=== PATIENT | male | born 1950 | race Native Hawaiian/Other Pacific Islander ===

== ENCOUNTER 2019-11-05 19:53 | Emergency (ER) | payer OTHER ==
[~2019-11-05] VITALS: Ht 175.3 cm; Wt 95.7 kg
[2019-11-05 19:53] VITALS: BP 137/77; TEMP 97.7
[2019-11-05 20:29] LABS: PLATELET COUNT 273 K/uL (142-355)
[2019-11-05 20:44] LABS: POTASSIUM 4.6 mmol/L (3.6-5.2)
[2019-11-06] MEDS ORDERED: DONE5TAB PO (01:20)
[2019-11-06] MEDS ORDERED: AMLODIPINE BESYLATE PO (01:20)
[2019-11-06] MEDS ORDERED: LIPITOR40 MG PO (01:21)
[2019-11-06] MEDS ORDERED: ASPIRIN 81 LOW81 MG PO (01:21)
[2019-11-06] MEDS ORDERED: BREO ELLIPTA 101 INH INH (01:22)
[2019-11-06] MEDS ORDERED: EQ ANTACID PO (01:24)
[2019-11-06] MEDS ORDERED: CLARITIN10 M1 PO (01:24)
[2019-11-06] MEDS ORDERED: ACID CONTROL20 MG PO (01:25)
[2019-11-06] MEDS ORDERED: IPRAAER INH (01:26)
[2019-11-06] MEDS ORDERED: PROZAC10 MG PO (01:27)
[2019-11-06] MEDS ORDERED: METO50TA27 PO (01:27)
[2019-11-06] MEDS ORDERED: TRAZODONE HYDR100 MG PO (01:28)
[2019-11-06] MEDS ORDERED: RISP0.5T2 PO (01:28)
[2019-11-06] MEDS ORDERED: TYLENOL325 MG PO (01:29)
== END 2019-11-05 22:05 | disposition other institution (70) ==
LOC: ED 19:53
PROVIDERS: Emergency Medicine
DX: L03.115 Cellulitis of right lower limb (principal); Z04.6 Encounter for general psychiatric examination, requested by authority
CPT/HCPCS: 36415; 80053; 81000; 84550; 85027; 87040; 93005; 96365; 99285; J0696